=== PATIENT | male | born 1995 | race Caucasian/White ===

== ENCOUNTER 2025-07-19 18:35 | Emergency (ER) | payer BC, SELFPAY ==
[2025-07-19 18:47] VITALS: BP 121/76
[2025-07-19 19:29] VITALS: BMI 26.4
[2025-07-19] MEDS: AUGMENTIN 875 MG/125 MG 1 TABLET PO (20:19)
[2025-07-19] MEDS: ADACEL 0.5 ML IM (20:19)
[2025-07-19] MEDS: RABAVERT RABIES VACC W-DILUENT 2.5 UNIT IM (20:37)
--- NOTE | 2025-07-19 22:04 | ED.SKININJ ---
HPI-Injury
General
Chief Complaint: Bite
Source: patient
Exam Limitations: none
Time Seen by Provider: 07/19/25 19:30
Nursing documentation reviewed up to this point in time: agreed with
History of Present Illness-Injury
Is this injury a work related problem?: No
Is pt an associate of [facility]/[place]?: No
Initial Injury comments:
Patient to the emergency department for evaluation of cat bite. He states he was bit by a feral cat on his left dorsal hand at second MCP. 2 puncture wounds are noted. No redness or swelling noted. He has full range of motion to hand. Patient
brought self to the emergency department to begin rabies series.
Past History
Past History
ED Past Medical History: None
Review of Systems
Review of Systems
Allergies reviewed?: Yes
All Other Systems: ROS reviewed and negative except as documented in HPI and ROS
Constitutional: Reports no symptoms
Respiratory: Reports no symptoms
Cardiac: Reports no symptoms
Musculoskeletal: Reports no symptoms
Skin: Reports other (Feral cat bite to left dorsal hand over second MCP)
Neurological: Reports no symptoms
Psychiatric: Reports no symptoms
Skin Exam
Bite
Left Dorsal Hand:
Type: animal (Feral cat)
Skin has: puncture wounds
Surrounding area around bite has: no evidence of erythema
Distal skin color and temperature: normal-warm & good color
Normal distal neurovascular exam: Yes
Phy Exam
General Physical Exam
General Presentation: well appearing and no apparent distress
General age: appears stated age
General Skin: warm and dry
General Habitus: normal
General Mental: alert
Musculoskeletal Exam
Musculoskeletal Exam: full ROM and neuro vasc intact
Skin Exam
Skin Exam: normal color, warm/dry and no rash
Psychiatric Exam
Psychiatric Exam: normal mood/affect
Course
Orders/Labs/Results
Orders:
Orders
07/19/25 20:08
Amoxicillin 875 mg/Clav 125 mg [Augmentin 875 mg/125 mg] 1 tablet PO NOW STA
Rabies Immune Globulin/Pf [HyperRAB] 1,814 unit IM NOW STA
Rabies Vaccine (Pcec)/Pf [Rabavert Rabies Vacc W-Diluent] 2.5 unit IM .ONCE ONE
07/19/25 20:15
Tetanus/Diphth/Acelpertussis [Adacel] 0.5 ml IM .ONCE ONE
07/19/25 20:17
Rabies Immune Globulin/Pf [HyperRAB] 1,814 unit IM NOW STA
Vital Signs
Initial and Last Documented VS:
Initial Vital Signs
Temp Pulse Resp BP Pulse Ox
97.6 F 97 16 121/76 100
07/19/25 18:47 07/19/25 18:47 07/19/25 18:47 07/19/25 18:47 07/19/25 18:47
Last Documented Vital Signs
Temp Pulse Resp BP Pulse Ox
97.6 F 97 16 121/76 100
07/19/25 18:47 07/19/25 18:47 07/19/25 18:47 07/19/25 18:47 07/19/25 18:47
*Pulse Oximetry
SaO2: 100
Oxygen Mode of Delivery: Room air
Patient hypoxic: no
*Critical Care Note
Total Time (30-74mins, 75-104mins- exclusive of procedures): Not Applicable
Update Note
Update Note:
Patient to the emergency department for evaluation after sustaining cat bite to left dorsal hand over second MCP by a feral cat earlier today. There is no redness or swelling at the site. There is no discharge. Puncture wounds noted at site. He
has full range of motion to his hand. Rabies series initiated in ED tonight. He will follow-up at the infusion center for injections on day 3 ,7 and 14. Rabies immunoglobulin also given in the ED tonight as well as Tdap update. He was placed on
Augmentin 875 mg twice daily, first dose given in ED. He was discharged home with instructions on wound care. He will follow-up with infusion center in 3 days for his next rabies vaccine. He was given instructions on signs and symptoms to return
to the emergency department and he is agreeable to this plan
ED Attending Note
-
Portions of this chart may have been created with voice recognition software.� Occasional wrong word or��sound alike� substitutions may have occurred due to the inherent limitations of voice recognition software.
Discharge Plan
Departure
Patient Disposition: Home (Routine Discharge)
Date of Disposition: 07/19/25
Time of Disposition: 20:09
Patient with high blood pressure during this ER visit?: No
Condition: Good
Covid-19: Not Applicable
Discharge Problem:
Cat bite
Instructions: Animal Bites (DC), Wound Care (DC), Rabies Vaccine
Prescriptions:
New
RabAvert (PF) 2.5 unit Suspension For Reconstitution
1 ml IM . DIRECTED Qty: 3 0RF
Rx Instructions:
See Rabies Vaccine Post Exposure Prophylaxis Instruction Sheet for Dosing Instructions
amoxicillin-pot clavulanate 875-125 mg tablet
1 tab PO BID Qty: 14 0RF
Referrals:
Ata Terry, DO [Family Provider, Family Practice]
Stand Alone Forms: Rabies Vaccine Post Exp Dosing
Interventions
Interventions:
*Risk Screen - Suicide Last Done: 07/19/25 18:47
*General Assessment Last Done: 07/19/25 18:47
*Neglect/Abuse Screening Last Done: 07/19/25 19:29
*ED- Fall Risk Assessment Last Done: 07/19/25 19:29
*ED COVID-19 Vaccine History Last Done: 07/19/25 18:47
*ED Influenza Vaccine History Last Done: 07/19/25 18:47
*Nursing Disposition Last Done: 07/19/25 20:48
ED-Skin Assessment Last Done: 07/19/25 19:31
Discharge Date and Time
Discharge Date/Time: 07/19/25 20:48
Print Language: CONGOLESE
== END 2025-07-19 20:48 | disposition home or self-care (01) ==
LOC: EMR 18:35
PROVIDERS: EMERGENCY PHYSICIAN Emergency Medicine; FAMILY PHYSICIAN Family Medicine
DX: S61.432A Puncture wound without foreign body of left hand, initial encounter (principal); W55.01XA Bitten by cat, initial encounter
CPT/HCPCS: 99282; 90471; 90472; 96372; 90375; 90675; 90715

== ENCOUNTER 2025-08-03 14:27 | Outpatient (RCR) | payer BC, SELFPAY ==
[2025-07-22 14:58] VITALS: BP 111/75
[2025-07-22] MEDS: RABAVERT RABIES VACC W-DILUENT 2.5 UNIT IM (15:08)
[2025-07-27 14:35] VITALS: BP 114/65
[2025-07-27] MEDS: RABAVERT RABIES VACC W-DILUENT 2.5 UNIT IM (14:53)
[2025-08-03 14:32] VITALS: BP 128/66
[2025-08-03] MEDS: RABAVERT RABIES VACC W-DILUENT 2.5 UNIT IM (14:37)
== END 2025-08-04 10:34 | disposition home or self-care (01) ==
LOC: OID 14:27
PROVIDERS: ATTENDING PHYSICIAN Emergency Medicine
DX: Z20.3 Contact with and (suspected) exposure to rabies (principal); Z23 Encounter for immunization
CPT/HCPCS: 90471; 90675